=== PATIENT | female | born 1970 | race Caucasian/White ===

== ENCOUNTER → 2017-07-05 | Outpatient (CLI) | payer BC | LOC: BMCIMAGING 10:05 | PROVIDERS: ATTEND Physician Assistant | DX: N63.10 Unspecified lump in the right breast, unspecified quadrant (principal) ==

== ENCOUNTER 2018-09-10 04:25 | Emergency (ER) | payer BC ==
[2018-09-10] MEDS ORDERED: LIDOCAINE 2% VISCOUS 15 ML UDCUP PO ONE (04:55)
[2018-09-10] MEDS ORDERED: HYOSCYAMINE SULFATE 0.125 MG TAB PO ONE (04:55)
[2018-09-10] MEDS ORDERED: MAG HYDROX/AL HYDROX/SIMETH 30 ML UDCUP PO ONE (04:55)
--- NOTE | 2018-09-10 05:00 | EDPHY ---
H & P Stated Complaint: CP, RADIATING TO L ARM Time Seen by Provider: 09/10/18 04:33 HPI/ROS: HPI The patient presents with chest pain which began at about 3:45 a.m. This morning and awoke her from sleep. She felt well when she went to bed last night. She awoke because of the pain which she describes as a midsternal constant burning in aching sensation which radiates to her left arm and is associated with some tingling of her 3rd through 5th digits. She has no prior history of similar pain. It is not associated with any shortness of breath, nausea, vomiting, dizziness, diaphoresis.. REVIEW OF SYSTEMS 10 systems were reviewed and negative with the exception of the elements mentioned in the history of present illness. PMHx: History of esophageal stricture status post dilatation Soc Hx: Here with her Dr. Nieves, no smoking history FHx: Grandfather with [place] in 70s PHYSICAL General Appearance: Alert, no distress Eyes: Pupils equal and round no pallor or injection ENT, Mouth: Mucous membranes moist Respiratory: There are no retractions, lungs are clear to auscultation Cardiovascular: Regular rate and rhythm , no chest wall tenderness Gastrointestinal: Abdomen is soft and non-tender, no masses, bowel sounds normal Neurological: A&O, moves all extremities Skin: Warm and dry, no rashes Musculoskeletal: Neck is supple non tender Extremities: symmetrical, full range of motion Psychiatric: Patient is oriented X 3, there is no agitation Source: Patient Exam Limitations: No limitations - Personal History LMP (Females 10-55): 8-14 Days Ago Current Tetanus Diphtheria and Acellular Pertussis (TDAP): Unsure Tetanus Vaccine Date: within last 10 years - Medical/Surgical History Hx Asthma: No Hx Chronic Respiratory Disease: No Hx Diabetes: No Hx Cardiac Disease: No Hx Renal Disease: No Hx Cirrhosis: No Hx Alcoholism: No Hx HIV/AIDS: No Hx Splenectomy or Spleen Trauma: No Other PMH: DENIES - Social History Smoking Status: Never smoked Constitutional: Initial Vital Signs Temperature (C) 36.5 C 09/10/18 04:27 Heart Rate 65 09/10/18 04:27 Respiratory Rate 16 09/10/18 04:27 Blood Pressure 100/66 09/10/18 04:27 O2 Sat (%) 99 09/10/18 04:27 O2 Delivery Mode Room Air Allergies/Adverse Reactions: No Known Allergies Allergy (Verified 03/15/12 20:13) Home Medications: Medication Instructions Recorded No Medications [NO HOME 1 ea [facility] 10/12/11 MEDICATIONS] Pharmacy Complete 10/12/11 10/12/11 Medical Decision Making - Diagnostics EKG Interpretation: EKG: Complete interpretation has been separately recorded in the [facility] archive. Summary impression: Normal sinus rhythm Imaging Results: Chest x-ray two views shows no cardiomegaly, no infiltrate, no pneumothorax, interpreted by me, radiology interpretation is pending. Imaging: I viewed and interpreted images myself Differential Diagnosis: 47-year-old female with history of esophageal strictures presents with chest pain that awoke her from sleep at 3:45 a.m.. The pain is in her mid sternum and radiates toward her left arm and is associated with some tingling of her digits. Here, vital signs are normal, she is generally well-appearing, heart and lung exams are benign. Differential diagnosis includes ACS, dyspepsia, less likely aortic dissection. Patient is given a GI cocktail in the emergency department. Patient felt better after receiving GI cocktail. Labs were unremarkable including 2 troponins. EKG is normal. Chest x-ray is normal. Suspect dyspepsia which could be related to underlying GERD or gastritis. Her HEART score is 1. Because of this I do not think she requires admission or any further testing. I have explained to her that I would like her to try an H2 cathy to see if this helps her symptoms. I would like her to follow up with her primary care doctor or Cardiology if her symptoms continue. - Data Points Laboratory Results: Laboratory Results 09/10/18 04:34 09/10/18 04:34 09/10/18 09/10/18 09/10/18 05:47 04:45 04:34 WBC RBC Hgb Hct MCV MCH MCHC RDW Plt Count MPV Neut % (Auto) Lymph % (Auto) Wilson % (Auto) Eos % (Auto) Baso % (Auto) Nucleat RBC Rel Count Absolute Neuts (auto) Absolute Lymphs (auto) Absolute Monos (auto) Absolute Eos (auto) Absolute Basos (auto) Absolute Nucleated RBC Immature Gran % Immature Gran # Sodium 139 mEq/L mEq/L (135-145) Potassium 4.0 mEq/L mEq/L (3.5-5.2) Chloride 108 mEq/L mEq/L (97-110) Carbon Dioxide 23 mEq/l mEq/l (22-31) Anion Gap 8 mEq/L mEq/L (6-14) BUN 21 mg/dL mg/dL (7-23) Creatinine 0.8 mg/dL mg/dL (0.6-1.0) Estimated GFR > 60 Glucose 94 mg/dL mg/dL (70-100) Calcium 9.1 mg/dL mg/dL (8.5-10.4) POC Troponin I 0.00 ng/mL ng/mL 0.01 ng/mL ng/mL (0.00-0.08) (0.00-0.08) 09/10/18 04:34 WBC 7.75 10^3/uL 10^3/uL (3.80-9.50) RBC 4.66 10^6/uL 10^6/uL (4.18-5.33) Hgb 14.9 g/dL g/dL (12.6-16.3) Hct 44.8 % % (38.0-47.0) MCV 96.1 fL fL (81.5-99.8) MCH 32.0 pg pg (27.9-34.1) MCHC 33.3 g/dL g/dL (32.4-36.7) RDW 12.2 % % (11.5-15.2) Plt Count 256 10^3/uL 10^3/uL (150-400) MPV 9.6 fL fL (8.7-11.7) Neut % (Auto) 47.9 % % (39.3-74.2) Lymph % (Auto) 38.3 % % (15.0-45.0) Wilson % (Auto) 7.2 % % (4.5-13.0) Eos % (Auto) 5.7 % % (0.6-7.6) Baso % (Auto) 0.8 % % (0.3-1.7) Nucleat RBC Rel Count 0.0 % % (0.0-0.2) Absolute Neuts (auto) 3.71 10^3/uL 10^3/uL (1.70-6.50) Absolute Lymphs (auto) 2.97 10^3/uL 10^3/uL (1.00-3.00) Absolute Monos (auto) 0.56 10^3/uL 10^3/uL (0.30-0.80) Absolute Eos (auto) 0.44 10^3/uL H 10^3/uL (0.03-0.40) Absolute Basos (auto) 0.06 10^3/uL 10^3/uL (0.02-0.10) Absolute Nucleated RBC 0.00 10^3/uL 10^3/uL (0-0.01) Immature Gran % 0.1 % % (0.0-1.1) Immature Gran # 0.01 10^3/uL 10^3/uL (0.00-0.10) Sodium Potassium Chloride Carbon Dioxide Anion Gap BUN Creatinine Estimated GFR Glucose Calcium POC Troponin I Medications Given: Discontinued Medications Al Hydroxide/Mg Hydroxide (Maalox Susp) 30 ml PO ONCE ONE Stop: 09/10/18 04:56 Last Admin: 09/10/18 04:59 Dose: 30 ml Hyoscyamine Sulfate (Levsin, Hyomax-Sl) 0.25 mg PO ONCE ONE Stop: 09/10/18 04:56 Last Admin: 09/10/18 04:59 Dose: 0.25 mg Lidocaine (Lidocaine 2% Viscous) 15 ml PO ONCE ONE Stop: 09/10/18 04:56 Last Admin: 09/10/18 04:59 Dose: 15 ml Point of Care Test Results: Chemistry 09/10/18 09/10/18 05:47 04:45 POC Troponin I 0.00 ng/mL ng/mL 0.01 ng/mL ng/mL (0.00-0.08) (0.00-0.08) Departure - Departure Disposition: Home, Routine, Self-Care Clinical Impression: Chest pain Qualifiers: Chest pain type: unspecified Qualified Code(s): R07.9 - Chest pain, unspecified Condition: Good Instructions: Chest Pain (ED), Gastroesophageal Reflux Disease (ED) Additional Instructions: Please return to the emergency department if your chest pain is worse in any way. Otherwise I would recommend you take Pepcid (famotidine) 20 mg twice a day as needed for any ongoing mild symptoms. If you find that your experiencing this pain consistently, I would recommend that you begin taking omeprazole 20 mg once a day for 1 month. You should follow up with your primary care doctor or the php mysql web developer listed below if you have any ongoing symptoms. Referrals: Johnathan King MD [Medical Doctor] - As per Instructions
[2018-09-10 05:02] LABS: PLATELET COUNT 256 10^3/uL (150-400)
[2018-09-10 06:19] VITALS: BP 104/67
--- NOTE | 2018-09-11 05:34 | CPEKG ---
Test Reason : OPEN Blood Pressure : / mmHG Vent. Rate : 055 BPM Atrial Rate : 056 BPM P-R Int : 131 ms QRS Dur : 082 ms QT Int : 430 ms P-R-T Axes : 070 078 071 degrees QTc Int : 412 ms Sinus rhythm Confirmed by Dorys Martinez ([id number]) on 09/11/2018 5:33:37 AM Referred By: Dorys Martinez Confirmed By:Dorys Martinez
== END 2018-09-10 06:18 | disposition home or self-care (01) ==
DX: R07.9 Chest pain, unspecified (principal)
CPT/HCPCS: 84484-ER